=== PATIENT | female | born 1990 | race Two or more races ===

== ENCOUNTER 2019-04-21 16:51 | Emergency (ER) | payer OTHER ==
[~2019-04-21] VITALS: Ht 157.5 cm; Wt 72.6 kg
[2019-04-21 17:53] LABS: Urine Bacteria FEW /hpf (None Seen); Urine Blood 2+ /uL (Negative); Urine Mucus FEW (None Seen); Urine Specific Gravity 1.028 (1.001-1.035); Urine WBC 69 /hpf (0 - 5)
[2019-04-21 18:33] VITALS: BP 122/76
== END 2019-04-21 19:47 | disposition home or self-care (01) ==
LOC: ER 16:58
DX: N39.0 Urinary tract infection, site not specified (principal); N76.0 Acute vaginitis; R51 Headache
CPT/HCPCS: 81001; 81025

== ENCOUNTER 2021-10-19 09:55 | Emergency (ER) | payer MEDICAID, OTHER ==
[~2021-10-19] VITALS: Ht 157.5 cm; Wt 70.3 kg
[2021-10-19 10:43] VITALS: BP 138/60
[2021-10-19] MEDS ORDERED: IBUPROFEN 800 MG TAB PO ONE (10:45)
[2021-10-19] MEDS ORDERED: IBUP800T27 PO (10:57)
== END 2021-10-19 11:19 | disposition home or self-care (01) ==
LOC: ER 09:55
DX: S93.401A Sprain of unspecified ligament of right ankle, initial encounter (principal); Z79.1 Long term (current) use of non-steroidal anti-inflammatories (NSAID); W22.8XXA Striking against or struck by other objects, initial encounter; Y93.89 Activity, other specified; Y92.89 Other specified places as the place of occurrence of the external cause; Y99.8 Other external cause status
CPT/HCPCS: 73610